=== PATIENT | male | born 1990 | race Hispanic/Latino ===

== ENCOUNTER 2025-04-02 16:51 | Emergency (ER) | payer MEDICARE, MEDICAID ==
[~2025-04-02] VITALS: Ht 177.8 cm; Wt 138.3 kg
--- NOTE | 2025-04-02 16:59 | ERN ---
ED Note History of Present Illness Stated Complaint: LLE PAIN X 2 MONTHS Chief Complaint: Lower Extremity Pain/Injury Time Seen by MD: 16:55 Dictation: PATIENT IS HERE WITH COMPLAINTS OF RIGHT ANKLE PAIN SWELLING FOR THE LAST TWO MONTHS ON-CALL. NO SHORTNESS A BREATH NO FEVER NO CHILLS NO NAUSEA VOMITING. HE STATES HE SAW HIS PRIMARY CARE DOCTOR WHO DID SOME BASIC LABS FOR FOLLOW UP IT THAT WERE ROUTINE HOWEVER WHEN HE TOLD HIS DOCTOR HE SAID TO GO TO THE EMERGENCY ROOM AND HAVE IT CHECKED FOR A DVT. HAS BEEN NEUROVASCULAR CMS INTACT THERE WAS NO PAIN SKIN IS NORMAL COLOR, DISTAL NEUROVASCULAR CMS INTACT Allergies: Coded Allergies: No Known Allergies (Unverified Allergy, Unknown, 04/02/25) Home Meds Active Scripts Ibuprofen (Ibuprofen 800 mg Tab) 800 Mg Tab, 800 MG PO Q8H PRN for fever or pain, #30 TAB 0 Refills Prov:CATINA SINCLAIR Luci GARCES 04/02/25 Past Medical History RN Note Reviewed/Agreed w/PFSH: Yes Review of System Dictation CONSTITUTIONAL: NEGATIVE EXCEPT FOR HPI HEAD/FACE: NEGATIVE EXCEPT FOR HPI EENT: NEGATIVE EXCEPT FOR HPI RESPIRATORY: NEGATIVE EXCEPT FOR HPI GASTROINTESTINAL/ABDOMINAL: NEGATIVE EXCEPT FOR HPI GENITOURINARY: NEGATIVE EXCEPT FOR HPI MUSCULOSKELETAL: NEGATIVE EXCEPT FOR HPI RIGHT ANKLE CALF SWELLING PAIN INTEGUMENTARY: NEGATIVE EXCEPT FOR HPI NEUROLOGICAL/PSYCH: NEGATIVE EXCEPT FOR HPI HEMATOLOGIC/LYMPHATIC: NEGATIVE EXCEPT FOR HPI ALL SYSTEMS NEGATIVE, EXCEPT NOTED ABOVE. 13 POINT REVIEW OF SYSTEMS ASSESSED AND ALL NEGATIVE EXCEPT FOR ABOVE. Initial Vital Sign VS Vital Signs Date Time Temp Pulse Resp B/P (MAP) Pulse Ox O2 Delivery O2 Flow Rate FiO2 04/02/25 16:53 98.1 90 16 133/85 99 Room Air 0 04/02/25 17:16 21 Physical Exam Dictation VITAL SIGNS REVIEWED GENERAL APPEARANCE: ALERT, ORIENTED X 3, N MILD ACUTE DISTRESS, WELL DEVELOPED, NOURISHED. MORBID OBESITY HEAD AND FACE: NON-TRAUMATIC. EYES: PERRL, PINK CONJUNCTIVAS, EYELID NO TRAUMA, ANTERIOR CHAMBER WITH ARCUS SENILIS. EARS: PINNAS INTACT AND NO SIGNS OF TRAUMA OR ERYTHEMA EAR CANALS CLEAR AND NO DISCHARGE TM NO ERYTHEMA NOSE: NO DISCHARGE, NO BLEEDING. OROPHARYNX: MOUTH NORMAL, TONGUE PINK, PHARYNX CLEAR,NO ERYTHEMA, TONSILS NO EXUDATES, NO ABSCESSES NOTED, MUCOUS MEMBRANE MOIST NECK: SUPPLE, NON-TENDER, NO THYROMEGALY, NO MASSES, NO JVD, NO BRUITS BREAST:DEFERRED CHEST:NO TENDERNESS, NO CREPITUS, NO PARADOXICAL MOVEMENT, NO RETRACTIONS LUNGS:CLEAR, WELL-VENTILATED, SYMMETRIC, NO RALES, NO WHEEZING, NO RHONCHI, NO STRIDOR, GOOD BREATH SOUNDS BILATERALLY HEART: REGULAR RATE, REGULAR RHYTHM, NO MURMUR, NO GALLOPS VASCULAR: NO PERIPHERAL EDEMA, ABDOMEN: SOFT, POSITIVE BOWEL SOUNDS, NONDISTENDED, NO GUARDING, NONTENDER, NO REBOUND, NO MASSES NO HEPATOMEGALY, NO SPLENOMEGALY, NO LOVELACE'S SIGN, NO HERNIAS. RECTAL: DEFERRED GENITAL: DEFERRED NEUROLOGICAL: NORMAL SPEECH, MOTOR FUNCTION INTACT, SENSORY FUNCTION INTACT MUSCULOSKELETAL: MILD RIGHT ANKLE AND POSTERIOR CALF SWELLING. VASCULAR CMS INTACT NO ERYTHEMA SKIN: COLOR PINK, DRY, NO TURGOR, NO RASH, NO LACERATIONS, NO ABRASIONS, NO CONTUSIONS. LYMPHATIC: DEFERRED Results (Laboratory/Radiology) Laboratory/Radiology 1720/ULTRASOUND DOPPLER STUDY RIGHT LEG NEGATIVE FOR DVT Labs Reviewed?: Yes ED Course ED Course Orders Procedure Category Date Status Time Us Venous Doppler US 04/02/25 Resulted Unilateral 16:57 Vital Signs Date Time Temp Pulse Resp B/P (MAP) Pulse Ox O2 Delivery O2 Flow Rate FiO2 04/02/25 17:16 98.1 88 16 129/78 99 Room Air* 0 21 04/02/25 16:53 98.1 90 16 133/85 99 Room Air 0 Medical Decision Making MDM 1800/MEDICAL DECISION-MAKING BASED ON HPI AND DOPPLER ULTRASOUND TO RULE OUT DVT. NEGATIVE DVT ON ULTRASOUND PATIENT DISCHARGED HOME WITH MUSCULOSKELETAL PAIN TOLD TO SEE HIS PRIMARY CARE DOCTOR IN THE NEXT ONE TWO DAYS FOR MANAGEMENT DX & DISP Disposition: Discharge Departure Impression: Primary Impression: Pain in right lower leg Condition: Stable Scripts Ibuprofen (Ibuprofen 800 mg Tab) 800 Mg Tab 800 MG PO Q8H PRN for fever or pain, #30 TAB 0 Refills Prov: CATINA SINCLAIR 04/02/25 Additional Instructions: FOLLOW-UP WITH PRIMARY CARE PROVIDER IN 1 TO 2 DAYS. TAKE MEDICATIONS DIRECTED HERE IN THE EMERGENCY ROOM. OKAY TO CONTINUE HOME MEDICATIONS UNLESS OTHERWISE DISCUSSED DURING YOUR VISIT IN THE EMERGENCY ROOM TODAY. RETURN TO YOUR NEAREST EMERGENCY ROOM IF SYMPTOMS WORSEN OR IF THERE IS NO IMPROVEMENT. CALL 911 IF YOU NEED IMMEDIATE ASSISTANCE. TAKE TYLENOL OR MOTRIN [id number] NEEDED AND IF NO CONTRAINDICATIONS ARE PRESENT. INCREASE ORAL HYDRATION. A WOUND CULTURE OR URINE CULTURE WAS ORDERED HERE IN THE EMERGENCY ROOM DEPARTMENT PLEASE FOLLOW-UP WITH PRIMARY CARE PROVIDER AND ADVISE THEM TO GET REPEAT PORTS FROM OUR FACILITY. IF YOU HAD ANY HELENA WRAP/SPLINTS THAT WERE APPLIED HERE, PLEASE DO NOT REMOVE THEM UNTIL YOU SEE YOUR PRIMARY CARE OR SPECIALTY. TAKE IBUPROFEN NEEDED FOR PAIN. SEE YOUR PRIMARY CARE DOCTOR FOR FOLLOW UP FOR YOUR CHRONIC RIGHT LEG PAIN IN THE NEXT 1-2 DAYS. DIET AND ACTIVITY TOLERATED. Time of Disposition: 17:59 I have reviewed the case, and I agree with, Diagnosis and Plan CATINA SINCLAIR Apr 02, 2025 16:59 MAYTE MIXON DO Apr 02, 2025 18:04
[2025-04-02 17:16] VITALS: BP 129/78; PULSE 88; RESP 16; TEMP 98; O2SAT 99
--- NOTE | 2025-04-02 17:33 | HMCIMG ---
EXAM Venous duplex ultrasound of the right lower extremity CLINICAL INDICATION Posterior right ankle pain and swelling. Evaluate for deep venous thrombosis. COMPARISON None. TECHNIQUE Grayscale, color Doppler, and spectral Doppler ultrasound evaluation of the deep venous system of the right lower extremity was performed. Compression and augmentation maneuvers were utilized where technically feasible. DEEP VENOUS SYSTEM The common femoral vein, femoral vein, profunda femoris vein, popliteal vein, posterior tibial veins, and peroneal veins demonstrate normal compressibility. Normal color flow and appropriate venous spectral waveforms are present. Augmentation responses are preserved. No intraluminal thrombus is identified. SUPERFICIAL VENOUS SYSTEM The great saphenous vein and small saphenous vein demonstrate normal compressibility and flow without evidence of superficial venous thrombosis. SOFT TISSUES No focal fluid collection or mass is identified in the imaged portions of the lower extremity. IMPRESSION * No sonographic evidence of acute deep venous thrombosis in the evaluated right lower extremity. * No evidence of superficial venous thrombosis. RECOMMENDATIONS * No further imaging is recommended at this time per ACR Appropriateness Criteria if clinical suspicion for deep venous thrombosis is low to moderate. * If symptoms persist or clinical suspicion remains high despite negative ultrasound findings, repeat venous duplex ultrasound in 5 to 7 days may be considered as clinically indicated. /[place]
[2025-04-02] MEDS ORDERED: IBUP-2077 PO (18:00)
== END 2025-04-02 18:10 | disposition home or self-care (01) ==
LOC: EDH 16:51
DX: M79.661 Pain in right lower leg (principal)
CPT/HCPCS: 93971; 99284